=== PATIENT | female | born 1970 | race Caucasian/White ===

== ENCOUNTER → 2021-09-26 | Outpatient (CLI) | payer OTHER ==
[~2021-09-26] MED LIST: CLIN150C17 PO; COLD1MIS PO; IBUP200C25 PO; PRED20TAB PO
== END ==
LOC: M LABSMTC 10:44
PROVIDERS: ATTEND Anesthesiology
DX: Z01.812 Encounter for preprocedural laboratory examination (principal); Z20.822 Contact with and (suspected) exposure to COVID-19

== ENCOUNTER 2021-10-01 09:56 | Day surgery (SDC) | payer OTHER ==
[~2021-10-01] VITALS: Ht 162.6 cm; Wt 99.3 kg
[~2021-10-01 09:56] MED LIST changes: +AMPICILLIN SOD/SULBACTAM SOD 3 GM in D5W MINI-BAG PLUS 100 ML IV ONE; +LR 1,000 ML IV ONE; +dexameTHASONE 4 MG/ML 1ML VIAL (J1100 PER 1MG) IV ONE
[2021-10-01] MEDS ORDERED: LIDOCAINE 2% W/ EPINEPHRINE 1.7 ML DENTAL INJ As Ordered ONE (12:44)
[2021-10-01] MEDS ORDERED: UNASYN 3GM VIAL As Ordered ONE (13:01)
[2021-10-01] MEDS ORDERED: LIDOCAINE 2% 100MG/5ML SDV (FOR ANES.) As Ordered ONE (13:46)
[2021-10-01] MEDS ORDERED: MIDAZOLAM INJ 2MG/2ML VIAL (J2250 PER 1MG) As Ordered ONE (13:46)
[2021-10-01] MEDS ORDERED: propofoL 200 MG/20 ML VIAL As Ordered ONE (13:46)
[2021-10-01] MEDS ORDERED: SUGAMMADEX SODIUM 500 MG/5 ML VIAL (BRIDION) As Ordered ONE (13:46)
[2021-10-01] MEDS ORDERED: fentaNYL 100 MCG/2 ML INJECTION As Ordered ONE (13:46)
[2021-10-01] MEDS ORDERED: ONDANSETRON 4MG/2ML VIAL As Ordered ONE (13:46)
[2021-10-01] MEDS ORDERED: dexameTHASONE 4 MG/ML 1ML VIAL (J1100 PER 1MG) As Ordered ONE (13:46)
[2021-10-01] MEDS ORDERED: KETOROLAC 60MG 2ML VIAL As Ordered ONE (13:46)
[2021-10-01] MEDS ORDERED: LABETALOL 100MG/20ML VIAL As Ordered ONE (13:46)
[2021-10-01] MEDS ORDERED: ROCURONIUM BROMIDE 50 MG/5 ML VIAL As Ordered ONE (13:46)
[2021-10-01] MEDS ORDERED: LR 1,000 ML IV SCH (14:25)
[2021-10-01] MEDS ORDERED: fentaNYL 100 MCG/2 ML INJECTION IV PRN (14:25)
[2021-10-01] MEDS ORDERED: oxyCODONE 5MG TAB PO PRN (14:25)
[2021-10-01] MEDS ORDERED: ONDANSETRON 4MG/2ML VIAL IV PRN (14:25)
[2021-10-01 15:50] VITALS: BP 157/92
== END 2021-10-01 15:54 | disposition home or self-care (01) ==
LOC: M SDC 09:56
PROVIDERS: ATTEND Dentist
DX: K08.89 Other specified disorders of teeth and supporting structures (principal); F40.232 Fear of other medical care; E66.01 Morbid (severe) obesity due to excess calories; F41.9 Anxiety disorder, unspecified; F17.210 Nicotine dependence, cigarettes, uncomplicated; Z92.84 Personal history of unintended awareness under general anesthesia
CPT/HCPCS: 88300; D7140; D7210; D7310; D9223; J0295; J1100; J1885; J2250; J2405; J3010